=== PATIENT | female | born 1990 | race Caucasian/White ===

== ENCOUNTER 2018-01-16 09:03 | Emergency (ER) | payer OTHER ==
[2018-01-16 09:20] VITALS: BP 122/70
== END 2018-01-16 12:02 | disposition left against medical advice (07) ==
LOC: ED 09:03
DX: L60.0 Ingrowing nail (principal); Z53.21 Procedure and treatment not carried out due to patient leaving prior to being seen by health care provider
CPT/HCPCS: 99281

== ENCOUNTER 2018-02-01 09:21 | Emergency (ER) | payer OTHER ==
[2018-02-01 09:51] LABS: BILIRUBIN,URINE NEGATIVE (NEGATIVE); GLUCOSE, URINE (UA) NEGATIVE (NEGATIVE); KETONES,URINE (UA) NEGATIVE (NEGATIVE); LEUKOCYTE ESTERASE, URINE TRACE (NEGATIVE); NITRITE,URINE NEGATIVE (NEGATIVE); OCCULT BLOOD,URINE NEGATIVE (NEGATIVE); PROTEIN,URINE NEGATIVE (NEGATIVE); UROBILINOGEN,URINE 0.2 (NORMAL) E.U./dL (NORMAL)
[2018-02-01 09:54] LABS: CLARITY,URINE HAZY (CLEAR); HCG UR QUAL NEGATIVE
--- NOTE | 2018-02-01 10:02 | ED Physician Documentation ---
PD HPI FEMALE - Stated complaint Stated Complaint: FEMALE - Chief complaint Chief Complaint: General - History obtained from History obtained from: Patient - History of Present Illness Timing - onset: How many days ago (5) Timing - duration: Days (5) Timing - details: Gradual onset, Still present Associated symptoms: Back pain, Dysuria, Urinary frequency Similar symptoms before: Diagnosis (UTI) Recently seen: Clinic - Additional information Additional information: 28-year-old female has developed urinary tract symptoms 5 days ago and she started on some antibiotics yesterday afternoon. She started on Macrobid and she feels that she now has some nausea and feels feverish and has back pain and she is worried this may be getting into her kidneys. Review of Systems Constitutional: reports: Chills, Fatigue. denies: Fever Eyes: denies: Decreased vision Ears: denies: Ear pain Nose: denies: Rhinorrhea / runny nose, Congestion Throat: denies: Sore throat Cardiac: denies: Chest pain / pressure, Palpitations Respiratory: denies: Dyspnea, Cough GI: reports: Nausea. denies: Abdominal Pain, Vomiting : reports: Dysuria, Frequency Skin: denies: Rash Musculoskeletal: reports: Back pain. denies: Neck pain, Extremity pain Neurologic: denies: Generalized weakness, Focal weakness, Numbness PD PAST MEDICAL HISTORY - Past Surgical History Past Surgical History: No - Present Medications Home Medications: Ambulatory Orders Medication Instructions Recorded Confirmed Alyson Servin 01/16/18 Sulfamethoxazole/Trimethoprim 1 each PO BID #10 tablet 02/01/18 [Sulfamethoxazole-Tmp Ds Tablet] - Allergies Allergies/Adverse Reactions: Allergies Allergy/AdvReac Type Severity Reaction Status Date / Time No Known Drug Allergies Allergy Verified 01/16/18 09:20 - Social History Does the pt smoke?: No Smoking Status: Never smoker PD ED PE NORMAL - Vitals Vital signs reviewed: Yes - General General: Alert and oriented X 3, No acute distress, Well developed/nourished - HEENT HEENT: Atraumatic, PERRL - Neck Neck: Supple, no meningeal sign - Cardiac Cardiac: RRR, No murmur - Respiratory Respiratory: No respiratory distress, Clear bilaterally - Abdomen Abdomen: Soft, Non tender - Back Back: No CVA TTP, No spinal TTP, Other (There is some mild paraspinous muscle tenderness to the lower lumbar spine area.) - Derm Derm: Normal color, Warm and dry, No rash - Extremities Extremities: No deformity, No edema - Neuro Neuro: No motor deficit, No sensory deficit Eye Opening: Spontaneous Motor: Obeys Commands Verbal: Oriented GCS Score: 15 - Psych Psych: Normal mood, Normal affect Results - Vitals Vitals: Vital Signs - 24 hr 02/01/18 02/01/18 09:28 11:09 Temperature 36.7 C Heart Rate 75 62 Respiratory 16 17 Rate Blood Pressure 125/76 114/73 O2 Saturation 98 99 Oxygen O2 Source Room air - Labs Labs: Laboratory Tests 02/01/18 02/01/18 02/01/18 09:30 09:30 09:46 WBC 7.5 RBC 4.85 Hgb 14.3 Hct 40.9 MCV 84.4 MCH 29.4 MCHC 34.9 RDW 12.8 Plt Count 220 MPV 7.5 L Neut # 4.3 Lymph # 2.4 [place] # 0.7 Eos # 0.1 Baso # 0.0 Absolute Nucleated RBC 0.00 Nucleated RBC % 0.0 Sodium Potassium Chloride Carbon Dioxide Anion Gap BUN Creatinine Estimated GFR (MDRD) Glucose Calcium Total Bilirubin AST ALT Alkaline Phosphatase Total Protein Albumin Globulin Albumin/Globulin Ratio Lipase Urine Color YELLOW Urine Clarity HAZY Urine pH 6.0 Ur Specific [place] 1.025 1.025 Urine Protein NEGATIVE Urine Glucose (UA) NEGATIVE Urine Ketones NEGATIVE Urine Occult Blood NEGATIVE Urine Nitrite NEGATIVE Urine Bilirubin NEGATIVE Urine Urobilinogen 0.2 (NORMAL) Ur Leukocyte Esterase TRACE H Urine RBC 0-5 Urine WBC 6-10 H Urine WBC Clumps PRESENT Ur Squamous Epith Cells MOD Squamous H Urine Bacteria Moderate H Ur Microscopic Review INDICATED Urine Culture Comments NOT INDICATED Urine HCG, Qual NEGATIVE 02/01/18 09:46 WBC RBC Hgb Hct MCV MCH MCHC RDW Plt Count MPV Neut # Lymph # [place] # Eos # Baso # Absolute Nucleated RBC Nucleated RBC % Sodium 135 Potassium 3.7 Chloride 101 Carbon Dioxide 27 Anion Gap 7.0 BUN 18 Creatinine 1.0 Estimated GFR (MDRD) 67 L Glucose 85 Calcium 9.2 Total Bilirubin 0.4 AST 30 ALT 27 Alkaline Phosphatase 48 Total Protein 7.3 Albumin 4.5 Globulin 2.8 Albumin/Globulin Ratio 1.6 Lipase 18 L Urine Color Urine Clarity Urine pH Ur Specific [place] Urine Protein Urine Glucose (UA) Urine Ketones Urine Occult Blood Urine Nitrite Urine Bilirubin Urine Urobilinogen Ur Leukocyte Esterase Urine RBC Urine WBC Urine WBC Clumps Ur Squamous Epith Cells Urine Bacteria Ur Microscopic Review Urine Culture Comments Urine HCG, Qual Procedures - IVC sono (time) 0955 Bedside IVC sono: IVC measures (cm) (1.93), IVC collapsed c insp (cm) (0.88), Euvolemia PD MEDICAL DECISION MAKING - ED course Complexity details: reviewed results, re-evaluated patient, considered differential, d/w patient ED course: 28-year-old female with a urinary tract infection that the patient was seen for yesterday and has started on Macrobid. Overnight she feels her symptoms have progressed and she has nausea and back pain and she is concerned about the possibility of pyelonephritis. On examination the patient does not have kidney tenderness to bimanual palpation of either kidney. She is afebrile and she does have evidence of infection on microscopic examination of the urine. She is administered Rocephin 1 g intravenously and will change her antibiotic to septra. Departure - Departure Disposition: 01 Home, Self Care Clinical Impression: Urinary tract infection Qualifiers: Urinary tract infection type: acute cystitis Hematuria presence: without hematuria Qualified Code(s): N30.00 - Acute cystitis without hematuria Condition: Stable Instructions: ED UTI Cystitis Female Follow-Up: Neeru Mendosa MD [Primary Care Provider] - Prescriptions: Sulfamethoxazole/Trimethoprim [Sulfamethoxazole-Tmp Ds Tablet] 1 each PO BID # 10 tablet Discharge Date/Time: 02/01/18 11:11
[2018-02-01 10:04] LABS: BACTERIA,URINE Moderate /HPF (None Seen); RBC,URINE 0-5 /HPF (0-5); SQUAMOUS EPITHELIAL CELL,UR MOD Squamous (<= Few); WBC CLUMPS,URINE PRESENT
[2018-02-01 10:05] LABS: BASOPHILS % (AUTO) 0.6 %; EOSINOPHILS # (AUTO) 0.1 10^3/uL (0.0-0.7); EOSINOPHILS % (AUTO) 1.5 %; HGB - HEMOGLOBIN 14.3 g/dL (12.0-16.0); LYMPHOCYTES # (AUTO) 2.4 10^3/uL (1.5-3.5); LYMPHOCYTES % (AUTO) 31.8 %; MEAN CORPUSCULAR HEMOGLOBIN 29.4 pg (27.0-31.0); MEAN CORPUSCULAR HGB CONC 34.9 g/dL (32.0-36.0); MEAN CORPUSCULAR VOLUME 84.4 fL (81.0-99.0); MEAN PLATELET VOLUME 7.5 fL (7.9-10.8); MONOCYTES # (AUTO) 0.7 10^3/uL (0.0-1.0); MONOCYTES % (AUTO) 8.9 %; NEUTROPHILS # (AUTO) 4.3 10^3/uL (1.5-6.6); NEUTROPHILS % (AUTO) 57.2 %; PLT - PLATELET COUNT 220 10^3/uL (130-450); RED BLOOD COUNT 4.85 10^6/uL (4.20-5.40); RED CELL DISTRIBUTION WIDTH 12.8 % (12.0-15.0); WHITE BLOOD COUNT 7.5 x10^3/uL (4.8-10.8)
[2018-02-01 10:20] LABS: ALBUMIN 4.5 g/dL (3.2-5.5); ALBUMIN/GLOBULIN RATIO 1.6 (1.0-2.2); BILIRUBIN,TOTAL 0.4 mg/dL (0.2-1.0); CALCIUM 9.2 mg/dL (8.5-10.3); TOTAL PROTEIN 7.3 g/dL (6.7-8.2)
[2018-02-01] MEDS: cefTRIAXone 1 GM in SODIUM CHLORIDE 0.9% MINIBAG 100 ML IV STA (10:48)
[2018-02-01 11:11] VITALS: BP 114/73
== END 2018-02-01 11:11 | disposition home or self-care (01) ==
LOC: ED 09:21
DX: N30.00 Acute cystitis without hematuria (principal); E86.0 Dehydration
CPT/HCPCS: 36415; 80053; 81001; 81003; 81025; 83690; 85025; 87086; 96365; 99283

== ENCOUNTER 2019-01-22 16:13 | Emergency (ER) | payer OTHER ==
[2019-01-22 16:22] VITALS: BP 132/78
[2019-01-22] MEDS ORDERED: CHERRY SYRUP 10 ML UDC PO ONE (16:52)
[2019-01-22] MEDS ORDERED: KETOROLAC 60 MG/2 ML VIAL IM STA (16:52)
[2019-01-22] MEDS ORDERED: DEXAMETHASONE 10 MG/ML VIAL PO STA (16:52)
--- NOTE | 2019-01-22 16:55 | ED Physician Documentation ---
PD HPI BACK PAIN - Stated complaint Stated Complaint: BACK PAIN - Chief complaint Chief Complaint: Back Pain - History obtained from History obtained from: Patient - History of Present Illness Timing - onset: Enter time (0700), Today Timing - duration: Hours Timing - details: Abrupt onset, Still present Location: Lower, Right, Left Quality: Pain, Spasm, Sharp, Similar to prior episodes Associated symptoms: No: Fever, Weakness, Numbness, Incontinent of urine, Hematuria, Incontinent of stool Improves with: Rest, Position Worsened by: Movement Contributing factors: Other (tripped and strained back) Similar symptoms before: No diagnosis Recently seen: Not recently seen - Additional information Additional information: Previously well 29-year-old female tripped this morning and when she went to catch herself she landed hard and she has had pain in her lower back since. She describes the pain is in her mid lower back radiating down both legs to just above the knee. She is having more pain on the left if she is standing more pain in the right if she is sitting. She denies any saddle anesthesia or incontinence. Review of Systems Constitutional: denies: Fever, Chills, Myalgias Eyes: denies: Decreased vision Ears: denies: Ear pain Nose: denies: Congestion Throat: denies: Sore throat Respiratory: denies: Cough GI: denies: Vomiting : denies: Dysuria Musculoskeletal: reports: Back pain, Extremity pain. denies: Neck pain Neurologic: reports: Numbness (to the back of the legs and in the buttocks.). denies: Generalized weakness, Focal weakness PD PAST MEDICAL HISTORY - Past Medical History Past Medical History: No - Past Surgical History Past Surgical History: No - Present Medications Home Medications: Ambulatory Orders Medication Instructions Recorded Confirmed Cyclobenzaprine [Flexeril] 10 mg PO TID PRN #20 tablet 01/22/19 Hydrocodone/Acetaminophen 1 - 2 each PO Q6H PRN #14 tablet 01/22/19 [Hydrocodon-Acetaminophen 5-325] - Allergies Allergies/Adverse Reactions: Allergies Allergy/AdvReac Type Severity Reaction Status Date / Time No Known Drug Allergies Allergy Verified 01/22/19 16:21 - Social History Does the pt smoke?: No Smoking Status: Never smoker Does the pt drink ETOH?: Yes Does the pt have substance abuse?: No - Immunizations Immunizations are current?: Yes - POLST Patient has POLST: No PD ED PE NORMAL - Vitals Vital signs reviewed: Yes (hypertensive mild ) - General General: Alert and oriented X 3, Well developed/nourished, Other (The patient appears to be in pain leaning foreward and rocking. ) - HEENT HEENT: Atraumatic, PERRL, EOMI - Respiratory Respiratory: No respiratory distress - Back Back: No CVA TTP, No spinal TTP, Other (There is pain to palpation in the paraspinous muscles of the lower lumbar spine bilaterally extending into the sciatic notch. ) - Derm Derm: Normal color, Warm and dry, No rash - Extremities Extremities: No deformity, No edema - Neuro Neuro: Alert and oriented X 3, regional controller 2-12 intact, No motor deficit, No sensory deficit, Normal speech Eye Opening: Spontaneous Motor: Obeys Commands Verbal: Oriented GCS Score: 15 - Psych Psych: Normal mood, Normal affect Results - Vitals Vitals: Vital Signs - 24 hr 01/22/19 16:20 Temperature 36.7 C Heart Rate 81 Respiratory 20 Rate Blood Pressure 132/78 H O2 Saturation 97 Oxygen O2 Source Room air PD MEDICAL DECISION MAKING - ED course Complexity details: considered differential, d/w patient ED course: 29-year-old female with acute sciatica appears to be in pain she is administered dexamethasone 10 mg orally and 60 of Toradol. Departure - Departure Disposition: 01 Home, Self Care Clinical Impression: Sciatica Qualifiers: Laterality: bilateral Qualified Code(s): M54.31 - Sciatica, right side; M54.32 - Sciatica, left side Condition: Stable Instructions: ED Sciatica Follow-Up: Galina Gonzalez MD [Primary Care Provider] - Prescriptions: Cyclobenzaprine [Flexeril] 10 mg PO TID PRN #20 tablet PRN Reason: Spasms Hydrocodone/Acetaminophen [Hydrocodon-Acetaminophen 5-325] 1 - 2 each PO Q6H PRN #14 tablet PRN Reason: pain Forms: Activity restrictions
== END 2019-01-22 17:07 | disposition home or self-care (01) ==
LOC: ED 16:13
DX: M54.31 Sciatica, right side (principal); Z91.81 History of falling
CPT/HCPCS: 96372; 99283

== ENCOUNTER 2019-01-25 13:45 | Emergency (ER) | payer OTHER ==
[2019-01-25 15:37] VITALS: BP 103/72
--- NOTE | 2019-01-25 16:49 | ED Physician Documentation ---
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 No fall nor direct impact. Has pain down into gluteal area. No numbness nor weakness down to lower leg, but some numbness to right buttock and behind thigh. Seen at [facility] and given Rx for meds. Has appt again next week. Is on limited duty.) Quality: Pain, Spasm, Aching Worsened by: Moving, Palpating Associated symptoms: Numbness (right buttock and down to behind knee.). No: Fever, Weakness, Incontinent of urine Similar symptoms before: Has not had sx before Recently seen: Not recently seen Review of Systems Constitutional: denies: Fever, Chills, Myalgias Nose: denies: Rhinorrhea / runny nose, Congestion Throat: denies: Sore throat Respiratory: denies: Cough GI: denies: Abdominal Pain, Nausea, Vomiting, Diarrhea : denies: Incontinent Skin: denies: Rash, Lesions Neurologic: denies: Focal weakness PD PAST MEDICAL HISTORY - Past Medical History Past Medical History: No Musculoskeletal: None - Past Surgical History Past Surgical History: No - Present Medications Home Medications: Ambulatory Orders Medication Instructions Recorded Confirmed Cyclobenzaprine [Flexeril] 10 mg PO TID PRN #20 tablet 01/22/19 01/25/19 Hydrocodone/Acetaminophen 1 - 2 each PO Q6H PRN #14 tablet 01/22/19 01/25/19 [Hydrocodon-Acetaminophen 5-325] Dexamethasone [Decadron] 4 mg PO DAILY #5 tablet 01/25/19 Hydrocodone/Acetaminophen [[place] 1 each PO Q6H PRN #25 tablet 01/25/19 5-325 Tablet] Methocarbamol [Robaxin] 500 mg PO Q6H PRN #30 tablet 01/25/19 Naproxen 375 mg PO BID #20 tablet 01/25/19 - Allergies Allergies/Adverse Reactions: Allergies Allergy/AdvReac Type Severity Reaction Status Date / Time No Known Drug Allergies Allergy Verified 01/25/19 14:32 - Social History Does the pt smoke?: No Smoking Status: Never smoker Does the pt drink ETOH?: Yes Does the pt have substance abuse?: No - Immunizations Immunizations are current?: Yes - POLST Patient has POLST: No PD ED PE NORMAL - Vitals Vital signs reviewed: Yes - General General: Alert and oriented X 3, No acute distress, Well developed/nourished - Cardiac Cardiac: RRR, No murmur - Respiratory Respiratory: Clear bilaterally - Abdomen Abdomen: Soft, Non tender - Back Back: No CVA TTP, No spinal TTP (not tender midline, but to the right muscles mainly. ) - Derm Derm: Normal color, Warm and dry - Extremities Extremities: Normal ROM s pain, No edema, No calf tenderness / cord - Neuro Neuro: No motor deficit, No sensory deficit, Other (normal knee reflexes) Results - Vitals Vitals: Oxygen O2 Source Room air PD MEDICAL DECISION MAKING - ED course Complexity details: considered differential (no red flags to suggest urgent imaging. ), d/w patient Departure - Departure Disposition: 01 Home, Self Care Clinical Impression: Low back strain Qualifiers: Encounter type: initial encounter Qualified Code(s): S39.012A - Strain of muscle, fascia and tendon of lower back, initial encounter Sciatica Qualifiers: Laterality: bilateral Qualified Code(s): M54.31 - Sciatica, right side Condition: Stable Record reviewed to determine appropriate education?: Yes Instructions: ED Low Back Pain Injury Follow-Up: Galina Gonzalez MD [Primary Care Provider] - Prescriptions: Dexamethasone [Decadron] 4 mg PO DAILY #5 tablet Hydrocodone/Acetaminophen [[place] 5-325 Tablet] 1 each PO Q6H PRN #25 tablet PRN Reason: Pain Methocarbamol [Robaxin] 500 mg PO Q6H PRN #30 tablet PRN Reason: Spasms Naproxen 375 mg PO BID #20 tablet Comments: Heat and gentle stretching for the low back. Light duty. Off work tonight. Use naproxen anti-inflammatory and Decadron steroid for inflammation as directed. Robaxin muscle relaxant for stiffness. Add hydrocodone if needed for pain. Follow-up with your primary care as planned on Tuesday. Forms: Activity restrictions Discharge Date/Time: 01/25/19 17:17
[2019-01-25] MEDS ORDERED: ACETAMINOPHEN 325 MG TABLET PO STA (17:04)
[2019-01-25] MEDS ORDERED: NAPROXEN 250 MG TABLET PO STA (17:04)
[2019-01-25] MEDS ORDERED: ACETAMINOPHEN 325 MG TABLET PO ONE (17:19)
[2019-01-25] MEDS ORDERED: NAPROXEN 250 MG TABLET PO ONE (17:20)
== END 2019-01-25 17:17 | disposition home or self-care (01) ==
LOC: ED 13:45
DX: S39.012A Strain of muscle, fascia and tendon of lower back, initial encounter (principal); X50.1XXA Overexertion from prolonged static or awkward postures, initial encounter; Y99.0 Civilian activity done for income or pay; M54.31 Sciatica, right side
CPT/HCPCS: 99283; A9270

== ENCOUNTER 2019-08-02 09:53 | Emergency (ER) | payer OTHER ==
[2019-08-02] MEDS ORDERED: IBUPROFEN 800 MG TABLET PO STA (10:22)
--- NOTE | 2019-08-02 10:31 | ED Physician Documentation ---
PD HPI UPPER EXT INJURY - Stated complaint Stated Complaint: R HAND INJ - Chief complaint Chief Complaint: Trauma Ext - History obtained from History obtained from: Patient - History of Present Illness Location: Right, Wrist, Hand Type of injury: Fall Where injury occurred: Home Timing - onset: Last night Timing - duration: Days (1) Timing - details: Abrupt onset Pain level max: 6 Pain level now: 4 Improved by: Rest, Ice, Immobilization Worsened by: Moving, Palpating Associated symptoms: Swelling. No: Weakness, Numbness, Tingling Contributing factors: No: Anticoagulated, Prior ortho surgery Recently seen: Not recently seen - Additonal information Additional information: pt is right handed. Fell on stairs. Pain to R hand and wrist. Review of Systems : denies: Now EGA Musculoskeletal: denies: Neck pain, Back pain Neurologic: denies: Head injury PD PAST MEDICAL HISTORY - Past Medical History Past Medical History: No Musculoskeletal: None - Past Surgical History Past Surgical History: No - Present Medications Home Medications: Ambulatory Orders Medication Instructions Recorded Confirmed Cyclobenzaprine [Flexeril] 10 mg PO TID PRN #20 tablet 01/22/19 01/25/19 Hydrocodone/Acetaminophen 1 - 2 each PO Q6H PRN #14 tablet 01/22/19 01/25/19 [Hydrocodon-Acetaminophen 5-325] Hydrocodone/Acetaminophen [[place] 1 each PO Q6H PRN #25 tablet 01/25/19 5-325 Tablet] Methocarbamol [Robaxin] 500 mg PO Q6H PRN #30 tablet 01/25/19 Naproxen 375 mg PO BID #20 tablet 01/25/19 dexAMETHasone [Decadron] 4 mg PO DAILY #5 tablet 01/25/19 Ibuprofen [Motrin] 800 mg PO Q8H PRN #30 tablet 08/02/19 - Allergies Allergies/Adverse Reactions: Allergies Allergy/AdvReac Type Severity Reaction Status Date / Time No Known Drug Allergies Allergy Verified 08/02/19 10:02 - Social History Does the pt smoke?: No Smoking Status: Never smoker Does the pt drink ETOH?: Yes Does the pt have substance abuse?: No - Immunizations Immunizations are current?: Yes - POLST Patient has POLST: No PD ED PE NORMAL - Vitals Vital signs reviewed: Yes - General General: Alert and oriented X 3, No acute distress - HEENT HEENT: Moist mucous membranes - Neck Neck: Supple, no meningeal sign - Cardiac Cardiac: RRR - Respiratory Respiratory: No respiratory distress, Clear bilaterally - Derm Derm: Warm and dry - Extremities Extremities: Other (TTP over the mid dorsal hand. Small ecchymosis and swelling. Mild diffuse TTP about the wrist. no snuffbox TTP. NVI.) - Neuro Neuro: Alert and oriented X 3 Results - Vitals Vitals: Oxygen O2 Source Room air - Rads (name of study) Right hand x-ray Radiology: Prelim report reviewed, EMP read contemporaneously, See rad report (Normal) Right wrist x-ray Radiology: Prelim report reviewed, EMP read contemporaneously, See rad report (Normal) PD MEDICAL DECISION MAKING - ED course Complexity details: reviewed results, re-evaluated patient, considered differential, d/w patient ED course: Patient with a right hand and wrist sprain. She is well-appearing, nontoxic. Afebrile. Negative x-rays. Good movement. Feels better after Motrin. Will continue gentle stretching and range of motion. Patient counseled regarding signs and symptoms for which I believe and urgent re-evaluation would be necessa ry. Patient with good understanding of and agreement to plan and is comfortable going home at this time This document was made in part using voice recognition software. While efforts are made to proofread this document, sound alike and grammatical errors may occur. Departure - Departure Disposition: 01 Home, Self Care Clinical Impression: Sprain of hand, right Qualifiers: Encounter type: initial encounter Qualified Code(s): S63.91XA - Sprain of unspecified part of right wrist and hand, initial encounter Contusion of right hand Qualifiers: Encounter type: initial encounter Qualified Code(s): S60.221A - Contusion of right hand, initial encounter Condition: Good Instructions: ED Sprain Hand Follow-Up: Galina Gonzalez MD [Primary Care Provider] - Within 1 week Prescriptions: Ibuprofen [Motrin] 800 mg PO Q8H PRN #30 tablet PRN Reason: PAIN &/OR FEVER Comments: Use the medications as prescribed. Return if you worsen. Follow-up with your doctor for further care. Your x-rays are normal today. Discharge Date/Time: 08/02/19 11:30
--- NOTE | 2019-08-02 10:50 | XRAY Report ---
Reason: fall, wrist pain Procedure Date: 08/02/2019 Accession Number: [id number] / [id number] Procedure: XR - Wrist 4 View RT CPT Code: FULL RESULT: EXAM: RIGHT WRIST RADIOGRAPHY EXAM DATE: 08/02/2019 10:25 AM. CLINICAL HISTORY: Fall, wrist pain. COMPARISON: HAND 3 VIEW RT 08/02/2019 10:13 AM. TECHNIQUE: 4 views. FINDINGS: Bones: Normal. No fractures or bone lesions. Joints: Normal. No subluxations. Soft Tissues: Normal. No soft tissue swelling. IMPRESSION: Normal wrist radiography. [facility]
--- NOTE | 2019-08-02 10:51 | XRAY Report ---
Reason: fall, hand pain Procedure Date: 08/02/2019 Accession Number: [id number] / [id number] Procedure: XR - Hand 3 View RT CPT Code: FULL RESULT: EXAM: RIGHT HAND RADIOGRAPHY 3 VIEWS EXAM DATE: 08/02/2019. CLINICAL HISTORY: Fell. Hand pain. COMPARISON: None. TECHNIQUE: PA, oblique and lateral views. FINDINGS: Bones: Normal. No fractures or bone lesions. Joints: Normal. No subluxations. Soft Tissues: Normal. No soft tissue swelling. IMPRESSION: Normal right hand radiography. [facility]
[2019-08-02 11:32] VITALS: BP 112/60
== END 2019-08-02 11:30 | disposition home or self-care (01) ==
LOC: ED 09:53
DX: S63.91XA Sprain of unspecified part of right wrist and hand, initial encounter (principal); S60.221A Contusion of right hand, initial encounter; W10.9XXA Fall (on) (from) unspecified stairs and steps, initial encounter; Y92.009 Unspecified place in unspecified non-institutional (private) residence as the place of occurrence of the external cause
CPT/HCPCS: 73110; 73130; 99283; 99284; A9270

== ENCOUNTER 2021-03-02 09:46 | Emergency (ER) | payer OTHER ==
--- NOTE | 2021-03-02 10:12 | ED Physician Documentation ---
PD HPI BACK PAIN - Stated complaint Stated Complaint: BACK PX - Chief complaint Chief Complaint: Back Pain - History obtained from History obtained from: Patient - History of Present Illness Timing - onset: How many days ago (3) Timing - duration: Days (3) Timing - details: Gradual onset, Still present (noted onset of some back pain with bending 3 days ago, was worse with stiffness this morning. No noted trauma, acute injury. Has had some back pain in episodes in the past, but last was 2 years ago. No weakness, numbness, rash, fevers.) Location: Lower, Right Quality: Pain, Spasm, Aching Associated symptoms: No: Fever, Weakness, Numbness, Incontinent of urine Worsened by: Movement Contributing factors: Lifting (had bent to lift light object when started hurting.). No: Twisting, Trauma Similar symptoms before: Diagnosis (low back strain and spasms.) Recently seen: Not recently seen Review of Systems Constitutional: denies: Fever, Chills, Myalgias Nose: denies: Rhinorrhea / runny nose, Congestion Throat: denies: Sore throat Cardiac: denies: Chest pain / pressure Respiratory: denies: Cough GI: denies: Abdominal Pain, Nausea, Vomiting, Diarrhea : reports: LMP (2 weeks ago though they are trying to get .). denies: Dysuria, Incontinent, Discharge Skin: denies: Rash, Lesions Neurologic: denies: Focal weakness, Numbness PD PAST MEDICAL HISTORY - Past Medical History Cardiovascular: None Respiratory: None Neuro: None Endocrine/Autoimmune: None Musculoskeletal: None (episodes of low back pain, no chronic issues. ) - Past Surgical History Past Surgical History: No - Present Medications Home Medications: Ambulatory Orders Medication Instructions Recorded Confirmed HYDROcod/ACETAM 5/325 [[place] 5/325] 1 ea PO Q6H PRN #18 tablet 03/02/21 Ibuprofen [Motrin] 600 mg PO TID PRN #25 tab 03/02/21 tiZANidine [Zanaflex] 4 mg PO Q8H PRN #25 tablet 03/02/21 - Allergies Allergies/Adverse Reactions: Allergies Allergy/AdvReac Type Severity Reaction Status Date / Time No Known Drug Allergies Allergy Verified 03/02/21 09:50 - Social History Does the pt smoke?: No Smoking Status: Never smoker Does the pt drink ETOH?: Yes Does the pt have substance abuse?: No - Immunizations Immunizations are current?: Yes - POLST Patient has POLST: No PD ED PE NORMAL - Vitals Vital signs reviewed: Yes - General General: Alert and oriented X 3, Well developed/nourished, Other (appears in pain with trying to sit up from inclined or with twisting of low back. ) - Cardiac Cardiac: RRR, No murmur - Respiratory Respiratory: Clear bilaterally - Abdomen Abdomen: Soft, Non tender - Back Back: No CVA TTP, No spinal TTP, Other (tender in right lower lumbar muscles. ) - Derm Derm: Normal color, Warm and dry, No rash - Neuro Neuro: Alert and oriented X 3, No motor deficit, No sensory deficit, Normal speech, Other (nornmal knee reflexes. ) Results - Vitals Vitals: Vital Signs - 24 hr 03/02/21 03/02/21 09:49 11:24 Temperature 36.3 C L 36.8 C Heart Rate 75 84 Respiratory 16 18 Rate Blood Pressure 106/67 116/79 O2 Saturation 100 97 Oxygen O2 Source Room air - Labs Labs: Laboratory Tests 03/02/21 10:30 Urine Color YELLOW Urine Clarity CLEAR Urine pH 6.0 Ur Specific [place] 1.025 Urine Protein NEGATIVE Urine Glucose (UA) NEGATIVE Urine Ketones >=80 H Urine Occult Blood TRACE-INTA Urine Nitrite NEGATIVE Urine Bilirubin SMALL H Urine Urobilinogen 0.2 (NORMAL) Ur Leukocyte Esterase NEGATIVE Ur Microscopic Review NOT INDICATED Urine Culture Comments NOT INDICATED Urine HCG, Qual NEGATIVE PD MEDICAL DECISION MAKING - ED course Complexity details: considered differential, d/w patient Departure - Departure Disposition: 01 Home, Self Care Clinical Impression: Lumbar pain Condition: Stable Record reviewed to determine appropriate education?: Yes Instructions: ED Sprain Strain Lumbar Follow-Up: [facility] [Provider Group] Prescriptions: Ibuprofen [Motrin] 600 mg PO TID PRN #25 tab PRN Reason: Pain HYDROcod/ACETAM 5/325 [[place] 5/325] 1 ea PO Q6H PRN #18 tablet PRN Reason: Pain tiZANidine [Zanaflex] 4 mg PO Q8H PRN #25 tablet PRN Reason: Spasms Comments: Heat and gentle stretching for the low back as tolerated to reduce spasming and stiffness. Anti-inflammatory such as ibuprofen 3 times a day with food for the next week. Add tizanidine muscle relaxant for stiffness and spasms. To that add Tylenol every 4-6 hours 650 mg, or hydrocodone/acetaminophen if needed for worse pain. I would anticipate improvement over several days to week. Recheck if not improving in that timeframe. Light activity for the next 2 to 3 days and progress as able. Discharge Date/Time: 03/02/21 11:29
[2021-03-02] MEDS ORDERED: KETOROLAC 30 MG/ML VIAL IM STA (10:30)
[2021-03-02] MEDS ORDERED: ACETAMINOPHEN 325 MG TABLET PO STA (10:30)
[2021-03-02] MEDS ORDERED: methocarbamoL 500 MG TABLET PO STA (10:31)
[2021-03-02] MEDS ORDERED: CHERRY SYRUP 10 ML UDC PO ONE (10:31)
[2021-03-02] MEDS ORDERED: DEXAMETHASONE 10 MG/ML VIAL PO STA (10:31)
[2021-03-02 10:38] LABS: GLUCOSE, URINE (UA) NEGATIVE (NEGATIVE); KETONES,URINE (UA) >=80 mg/dL (NEGATIVE); LEUKOCYTE ESTERASE, URINE NEGATIVE (NEGATIVE); NITRITE,URINE NEGATIVE (NEGATIVE); OCCULT BLOOD,URINE TRACE-INTA (NEGATIVE); PROTEIN,URINE NEGATIVE (NEGATIVE); UROBILINOGEN,URINE 0.2 (NORMAL) E.U./dL (NORMAL)
[2021-03-02 10:45] LABS: BILIRUBIN,URINE SMALL (NEGATIVE); CLARITY,URINE CLEAR (CLEAR); ICTOTEST,URINE POSITIVE
[2021-03-02 10:46] LABS: HCG UR QUAL NEGATIVE
[2021-03-02 11:24] VITALS: BP 116/79
== END 2021-03-02 11:29 | disposition home or self-care (01) ==
LOC: ED 09:46
DX: M54.5 Low back pain (principal)
CPT/HCPCS: 81003; 81025; 96372; 99283; 99284; A9270; 81001; 87086

== ENCOUNTER 2021-08-16 12:09 | Emergency (ER) | payer OTHER ==
[2021-08-16 12:37] VITALS: BP 102/59
[2021-08-16] MEDS ORDERED: predniSONE 20 MG TABLET PO STA (13:12)
[2021-08-16] MEDS ORDERED: HYDROmorphone 1 MG/ML CARPUJECT IM STA (13:12)
--- NOTE | 2021-08-16 13:19 | ED Physician Documentation ---
History of Present Illness - Stated complaint Stated Complaint: BACK INJ/LT LEG NUMB - Chief complaint Chief Complaint: Back Pain - Additonal information Additional information: 31-year-old female presents emergency department with acute left low back pain with radiation to the leg. She reports that she has had this many times in the past. She thinks that she has sciatica. She was simply doing yard work when she bent over felt a sharp pain with radiation. Now she has difficulty bearing weight on the leg and walking. No fevers, no saddle anesthesia, no history of intravenous drug use. No loss of bowel or bladder function. She has been seeing a chiropractor for a history of scoliosis. She is also been using biofeedback to help with chronic back pain. She does not have a PCP as she just got out of the [employer]. Review of Systems Constitutional: denies: Fever Eyes: reports: Reviewed and negative Nose: reports: Reviewed and negative Throat: reports: Reviewed and negative Cardiac: reports: Reviewed and negative Respiratory: reports: Reviewed and negative GI: reports: Reviewed and negative : reports: Reviewed and negative Skin: denies: Rash, Lesions Musculoskeletal: reports: Back pain, Extremity pain Neurologic: denies: Generalized weakness, Focal weakness, Numbness, Difficulty speaking PD PAST MEDICAL HISTORY - Past Medical History Cardiovascular: None Respiratory: None Neuro: None Endocrine/Autoimmune: None Musculoskeletal: None (episodes of low back pain, no chronic issues. ) - Past Surgical History Past Surgical History: No - Present Medications Home Medications: Ambulatory Orders Medication Instructions Recorded Confirmed HYDROcod/ACETAM 5/325 [[place] 5/325] 1 ea PO Q6H PRN #18 tablet 03/02/21 Ibuprofen [Motrin] 600 mg PO TID PRN #25 tab 03/02/21 tiZANidine [Zanaflex] 4 mg PO Q8H PRN #25 tablet 03/02/21 HYDROcod/ACETAM 5/325 [[place] 5/325] 1 tablet PO BID PRN #10 tablet 08/16/21 predniSONE [Deltasone] 40 mg PO DAILY 4 Days #8 tablet 08/16/21 tiZANidine [Zanaflex] 4 mg PO BID PRN #15 tablet 08/16/21 - Allergies Allergies/Adverse Reactions: Allergies Allergy/AdvReac Type Severity Reaction Status Date / Time No Known Drug Allergies Allergy Verified 08/16/21 12:34 - Social History Does the pt smoke?: No Smoking Status: Never smoker Does the pt drink ETOH?: Yes Does the pt have substance abuse?: No - Immunizations Immunizations are current?: Yes - POLST Patient has POLST: No PD ED PE EXPANDED - General General: Alert, No acute distress - Cardiac Cardiac: Regular Rate, Radial strong equal, Pedal strong equal, Cap refill < 2 sec - Respiratory Respiratory: Clear to ausultation elizabeth. No: Distress, Labored - Abdomen Abdomen: Normal Bowel sounds. No: Tender to palpation - Back Back: Soft tissue tenderness, Limited ROM (Focal tenderness at the left SI joint with pain radiating down the left leg. Left paraspinous muscle tenderness. No midline vertebral process tenderness. No swelling ecchymosis or erythema. Use forward flexion of the lower lumbar spine.), Straight leg raise + L, Other (Motor strength is five of five bilateral lower extremities. Subjective tingling of the left lateral thigh.). No: Vertebral tenderness, Straight leg raise + R Results - Vitals Vitals: Vital Signs - 24 hr 08/16/21 12:34 Temperature 36.5 C Heart Rate 77 Respiratory 16 Rate Blood Pressure 102/59 L O2 Saturation 99 Oxygen O2 Source Room air PD MEDICAL DECISION MAKING - ED course Complexity details: reviewed results, re-evaluated patient, d/w patient ED course: 31-year-old female presents emergency department with acute left low back pain with radiation to the leg. Has had this similarly in the past. Suspect that she has there are no red flags on exam. Patient was given a dose of Dilaudid as well as prednisone here in the ER. On reexamination she is free of pain. She will be started on a an additional 4-day course of prednisone as well as some tizanidine. Limited amount of hydrocodone will also be levied. I am prescribing a short course of short-acting opioid pain medication for this patient. I have reviewed the patients PRODUCT MANAGEMENT INTERN and no concerning findings were noted. I have discussed that the opioids are for short term therapy only, and will not be refilled from the ED. Departure - Departure Disposition: 01 Home, Self Care Clinical Impression: Low back pain Qualifiers: Chronicity: acute Back pain laterality: left Sciatica presence: with sciatica Sciatica laterality: sciatica of left side Qualified Code(s): M54.42 - Lumbago with sciatica, left side Condition: Stable Record reviewed to determine appropriate education?: Yes Instructions: ED Sciatica Prescriptions: predniSONE [Deltasone] 40 mg PO DAILY 4 Days #8 tablet HYDROcod/ACETAM 5/325 [[place] 5/325] 1 tablet PO BID PRN #10 tablet PRN Reason: Pain tiZANidine [Zanaflex] 4 mg PO BID PRN #15 tablet PRN Reason: Spasms Comments: Cassandra you're seen today in the ER for low back pain with radiation to your leg. I suspect the most likely have sciatica. Please fill the prescription for the prednisone and begin taking tomorrow for the next 4 days. I have also written a prescription for a muscle relaxer that you can take once or twice a day. Please be cautious using this it may make you sleepy. I'm also writing a prescription for a very limited amount of hydrocodone to help with severe pain only. Do not drive if taking this medication it can legally intoxicate you. In the long-term it is can be very important that you follow-up with a primary care provider. You may benefit from referral to a physical therapist for long- term management of your low back pain. If at any point you develop numbness or tingling between your legs, become incontinent of bowel or urine urine or develop high fevers then please return immediately to the ER for second evaluation. Your prescriptions have been sent to the [facility] in [place].
== END 2021-08-16 13:59 | disposition home or self-care (01) ==
LOC: ED 12:09
DX: M54.42 Lumbago with sciatica, left side (principal)
CPT/HCPCS: 99283; J1170; J7512